=== PATIENT | female | born 1940 | race Caucasian/White ===

== ENCOUNTER 2016-11-30 15:29 | Observation (INO) | payer OTHER ==
[~2016-11-30] VITALS: Ht 162.6 cm; Wt 72.6 kg
[~2016-11-30 15:29] MED LIST: ALBUTEROL0.09 MG/A1 INH; CEFTIN500 MG PO; CENTRUM SILVER1 TAB PO; COLACE100 MG PO; DOXAZOSIN MESYLA1 MG PO; PEPCID AC10 M2 PO; PRESERVISION A1 EAC1 PO; PROBIOTIC FORMU1 CA1 PO; PROMETHAZINE25 M1 PO
--- NOTE | 2016-11-30 15:42 | NUR ---
76 YEAR OLD FEMALE COMPLAINS OF MID CHEST PAIN THAT STARTED THIS AM, PAIN IS CONSTANT, BUT GETS SHARPER AT TIMES AND THAT SHE CAN'T STOP BELCHING, STATES THAT PAIN ALSO WRAPS INTO HER BACK. STATES THAT SHE FEELS LIKE THERE IS A PRESSURE IN HER MID EPIGASTRIC AREA INTO HER BACK. ALSO STATES THAT HE RFEET FEEL COURT AND THAT SHE HAS A HEADACHE. BP ELEVATED AT TRIAGE
[2016-11-30] MEDS ORDERED: VALSARTAN320 M1 PO (15:57)
[2016-11-30] MEDS ORDERED: MULTI-DAY VITA1 EACH PO (15:59)
[2016-11-30] MEDS ORDERED: MAGNESIUM400 M1 PO (15:59)
--- NOTE | 2016-11-30 16:29 | ED GENERAL ADULT ---
See Addendum History of Present Illness General Chief Complaint: Chest Pain Stated Complaint: C/P ON AND OFF SINCE YESTERDAY/ABD PAIN Source: patient Exam Limitations: no limitations Vital Signs & Intake/Output Vital Signs & Intake/Output Vital Signs Date Time Temp Pulse Resp B/P B/P Pulse O2 O2 Flow FiO2 Mean Ox Delivery Rate 11/30 1941 54 18 170/89 98 Room Air 11/30 1758 97.8 70 18 163/80 98 Room Air 11/30 1656 64 164/87 11/30 1539 99.3 86 20 193/104 98 Room Air Allergies Coded Allergies: aspirin (BRUISE, HEAD FEELS FUNNY 10/05/15) azithromycin (ABD CRAMPS, HEADACHE 10/05/15) ciprofloxacin (From CIPRO) (HYPOTENSION 10/05/15) hydralazine (SOB, TACHYCARDIA 10/05/15) latex (BLOODIED AREAS OF CONTACT 10/05/15) nitrofurantoin (RASH 10/05/15) phenazopyridine (RASH 10/05/15) rabeprazole (MILD MYALGIA 10/05/15) amlodipine (Severe, LEG CRAMPING 10/05/15) ondansetron (Intermediate, NAUSEA 10/05/15) amoxicillin (From AUGMENTIN) (DIZZY 10/05/15) clavulanic acid (From AUGMENTIN) (DIZZY 10/05/15) lisinopril (SEVERE HYPOTENSION 10/05/15) metronidazole (HYPOTENSION 10/05/15) rosuvastatin (MYALGIA 10/05/15) Uncoded Allergies: GASOLINE (WHEEZING 06/14/15) Reconcile Medications Famotidine (Pepcid AC) 10 MG TABLET 1 TAB PO BID GI (Reported) Magnesium Oxide (Magnesium) (Unknown Strength) CAPSULE (Unknown Dose) PO BID SUPPLEMENT (Reported) Multivitamin (Multi-Day Vitamins) 1 EACH TABLET 1 TAB PO DAILY SUPPLEMENT ( Reported) Valsartan 320 MG TABLET 1 TAB PO DAILY BP (Reported) Vit C/E/Zn/Coppr/Lutein/Zeaxan (Preservision Areds 2 Softgel) 250-200-40 CAPSULE 1 CAP PO BID SUPPLEMENT (Reported) Triage Note: 76 YEAR OLD FEMALE COMPLAINS OF MID CHEST PAIN THAT STARTED THIS AM, PAIN IS CONSTANT, BUT GETS SHARPER AT TIMES AND THAT SHE CAN'T STOP BELCHING, STATES THAT PAIN ALSO WRAPS INTO HER BACK. STATES THAT SHE FEELS LIKE THERE IS A PRESSURE IN HER MID EPIGASTRIC AREA INTO HER BACK Triage Nurses Notes Reviewed? yes Onset: Abrupt Duration: hour(s): Timing: recent history HPI: 11/30/16 5:11 PM 76-year-old female presents to the emergency department for epigastric abdominal pain and tightness. She also has an elevated blood pressure. She says that she 's had intermittent episodes of elevated blood pressure. This morning her blood pressure was very high. She had a mild headache. This is gone. She's also had some intermittent chest discomfort. She admits to nausea but no vomiting. The onset of the symptoms was abrupt, the duration was just today, the severity significant; as her symptoms required her to come to the emergency department for care. Past History Travel History Traveled to [facility] [place] past 21 day No Medical History Any Pertinent Medical History? see below for history EENT: SEASONAL ALLERGIES Cardiovascular: hypertension Respiratory: asthma, COPD Gastrointestinal: diverticulitis, GERD Renal: kidney stones requiring lithotripsy/stenting recurrent uti Musculoskeletal: osteoarthritis Surgical History Surgical History: appendectomy, hemicolectomy hernia repair x 8 Psychosocial History Who do you live with Patient/Self What is your primary language Georgian Tobacco Use: Never used Family History Hx Contributory? No Review of Systems Review of Systems Constitutional: Denies: fever. EENTM: Denies: visual changes. Respiratory: Reports: short of breath (ALWAYS). Cardiovascular: Denies: chest pain. GI: Reports: abdominal pain. Genitourinary: Reports: no symptoms. Musculoskeletal: Reports: no symptoms. Skin: Reports: no symptoms. Neurological/Psychological: Reports: headache. Hematologic/Endocrine: Denies: bruising, bleeding. Immunologic/Allergic: Reports: no symptoms. Physical Exam Physical Exam General Appearance: alert, awake, anxious, moderate distress Head: atraumatic, normal appearance Eyes: Bilateral: normal appearance, PERRL, EOMI. Ears, Nose, Throat: normal pharynx, normal ENT inspection Neck: normal inspection, supple Respiratory: normal breath sounds, chest non-tender, no respiratory distress Cardiovascular: regular rate/rhythm Peripheral Pulses: 4+ radial (R), 4+ radial (L) Gastrointestinal: soft, tenderness Back: decreased range of motion Extremities: pedal edema Neurologic/Psych: no motor/sensory deficits, awake, alert, oriented x 3 Skin: intact, normal color, warm/dry Core Measures ACS in differential dx? Yes ASA ordered for poss ACS? No-d/t known allergy CVA/TIA Diagnosis: No Severe Sepsis Present: No Septic Shock Present: No Progress Differential Diagnoses I considered the following diagnoses in my evaluation of the patient: Acute coronary syndrome, hypertensive urgency, cholecystitis, diverticulitis, bowel obstruction Plan of Care: Orders Procedure Date/time Status Heart Healthy Diet 12/01 B Active Patient Data 11/[address] in observation 11/30 2053 Active Vital Signs 11/30 2053 Active Code Status 11/30 2053 Active Add-on Test (ER Only) 11/30 181 Active EKG 11/30 181 Active TROPONIN LEVEL 11/30 165 Complete Saline Lock 11/30 163 Active D-DIMER 11/30 163 Complete COMPREHENSIVE METABOLIC PANEL 11/30 163 Complete CBC WITHOUT DIFFERENTIAL 11/30 163 Complete B-TYPE NATRIURETIC PEP (BNP) 11/30 163 Complete Intake & Output 11/30 1551 Active EKG 11/30 1533 Active Laboratory Tests 11/30/16 1650: Anion Gap 9, Estimated GFR > 60, BUN/Creatinine Ratio 22.9, Glucose 86, Calcium 9.9, Total Bilirubin 0.8, AST 25, ALT 35, Alkaline Phosphatase 86, Troponin I < 0.01, Bty-T-Vcdkrtftppc Pept 114, Total Protein 7.0, Albumin 4.4, Globulin 2.6, Albumin/Globulin Ratio 1.7, D-Dimer High Sensitivty < 200, CBC w Diff NO MAN DIFF REQ, RBC 4.50, MCV 90.6, MCH 30.0, RDW 14.1, MPV 8.8, Gran % 79.0 H, Lymphocytes % 9.4 L, Monocytes % 8.6, Eosinophils % 2.8, Basophils % 0.2, Absolute Granulocytes 5.3, Absolute Lymphocytes 0.6 L, Absolute Monocytes 0.6, Absolute Eosinophils 0.2, Absolute Basophils 0, PUBS MCHC 33.2 Initial ED EKG: NSR Prior EKG: unchanged Departure Departure Disposition: HOME OR SELF CARE Condition: Stable Clinical Impression Primary Impression: Abdominal pain Secondary Impressions: Chest pain, Hypertension Referrals: LUCIO STERLING,VANESA Pelletier (PCP/Family) Departure Forms: Customer Survey General Discharge Information Comments Patient was treated with IV Lopressor The patient had an episode of bradycardia although her blood pressure did come down with IV antihypertensive medication. Her pain improved. She was placed in inpatient observation for serial troponins, repeat cardiogram, consider cardiology consult, consider CT scan of the abdomen and pelvis, consider CT scan of the head should her headache persist. Observation Note Spoke With: MARLENA STERLING,GEOVANNA Physician Advisor Notified: RYLEE STERLING,LIZETTE Xavier Place Patient In: Non-ED OBS Care Area Rationale for Observation: My rational for observation is as follows [serial troponins, serial EKG, consider cardiology consultation, telemetry monitoring, consider CT scan of the abdomen and pelvis if continued abdominal pain, consider CT of the head if headache returns.]. Critical Care Note Critical Care Note Critical Care Time: non-applicable
[2016-11-30 16:59] LABS: ABSOLUTE BASOPHIL COUNT 0 /CUMM (0.0-0.2); ABSOLUTE EOSINOPHIL COUNT 0.2 /CUMM (0.0-0.7); ABSOLUTE GRANULOCYTE CT 5.3 /CUMM (1.4-6.5); ABSOLUTE LYMPH COUNT 0.6 /CUMM (1.2-3.4); ABSOLUTE MONOCYTE COUNT 0.6 /CUMM (0.10-0.60); BASOPHIL % 0.2 % (0.0-2.0); EOSINOPHIL % 2.8 % (0-5); HEMATOCRIT 40.8 % (37-47); MEAN CORPUSCULAR HGB CONC 33.2 G/DL (33.0-37.0); MEAN CORPUSCULAR VOLUME 90.6 FL (81.0-99.0); MEAN PLATELET VOLUME 8.8 FL (7.4-10.4); PLATELET COUNT 214 /CUMM (130-400); RBC DISTRIBUTION WIDTH 14.1 % (11.5-14.5); WHITE BLOOD CELL COUNT 6.8 /CUMM (4.8-10.8)
--- NOTE | 2016-11-30 17:10 | RADIOLOGY REPORT ---
EXAMINATION: XR PORTABLE CHEST CLINICAL INFORMATION: Shortness of breath. COMPARISON: Multiple priors including 06/14/2015. 07/22/2012. TECHNIQUE: Portable frontal view of the chest was obtained. FINDINGS: The cardiomediastinal silhouette is stable appearing and unremarkable. There is a stable appearing 1 cm nodule in the right costophrenic angle laterally likely previously identified nodule on chest CT. This appears unchanged back to the portable chest x-ray the 2012. The lungs and pleural spaces otherwise appear clear without evidence of congestion, consolidation, or significant appearing effusion or atelectasis. There is no evidence of pneumothorax or pulmonary edema. Included osseous structures appear largely unremarkable. IMPRESSION: No evidence of an acute intrathoracic process.
--- NOTE | 2016-11-30 17:58 | NUR ---
WHILE OBTAINING VITAL SIGNS, PT REPORTS SHE HAS NOTICED THAT HER PULSE RATE WAS DOWN TO 45 BPM WHILE RESTING AND WHEN MOVING HER NECK. DR. JACKSON INFORMED.
--- NOTE | 2016-11-30 20:09 | ULTRASOUND REPORT ---
EXAMINATION: US ABDOMEN LIMITED CLINICAL INFORMATION: Right upper quadrant abdominal pain. COMPARISON: Renal ultrasound 09/04/2015. TECHNIQUE: Real-time imaging of the right upper quadrant abdominal viscera. FINDINGS: PANCREAS: Normal. LIVER: Unremarkable. The liver demonstrates normal size, contour and echogenicity. No focal lesion or intrahepatic biliary duct dilatation. GALLBLADDER: Unremarkable. The gallbladder is physiologically distended without evidence of stones, sludge, polyps, wall thickening or pericholecystic fluid. COMMON BILE DUCT: Normal in caliber measuring 0.5 cm in diameter. RIGHT KIDNEY: The right kidney is normal in size, contour and echogenicity and measures approximately 13 cm in length. 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 Identified is a shadowing stone within the midpole of the right kidney measuring 1.6 cm in maximum diameter. There is no appreciable hydronephrosis of the right kidney. FREE FLUID: None. IMPRESSION: 1. No cholelithiasis or secondary signs of acute cholecystitis. 2. Interval development of a 1.6 cm shadowing stone within the midpole of the right kidney. No appreciable hydronephrosis of the right kidney. 3. 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
--- NOTE | 2016-11-30 20:46 | NUR ---
RESTING QUIETLY. REMAINS SLIGHTLY HYPERTENSIVE WITH RIGHT SIDED HEADACHE. DENIES N/V, DIZZINESS OR BLURRED VISION. PATIENT IS ABLE TO AMBULATE W/O ASSIST.
--- NOTE | 2016-11-30 22:07 | NUR ---
RESTING QUIETLY. AWAITING BED ASSIGNMENT.
--- NOTE | 2016-11-30 23:08 | History & Physical ---
LIZ WILLETT 11/30/16 8668: General Information and HPI MD Statement: I have seen and personally examined BRITNI RIOS and documented this H&P. The patient is a 76 year old F who presented with a patient stated chief complaint of epigastric/chest pain. Source of Information: patient Exam Limitations: no limitations History of Present Illness: Mrs. Rios is a 76-year-old woman with past medical history of hypertension, asthma, osteoarthritis, diverticulitis status post partial colon resection, nephrolithiasis presents to the [facility] ED chief complaint of chest pain and elevated blood pressure. Patient started experiencing this current episode of midsternal bandlike chest pain this afternoon, describing this as sharp, nonradiating pain. No alleviating or aggravating factors. Nonexertional. No associated lightheadedness or dizziness, but does admit to experiencing exertional dyspnea for a few days. This episode of chest pain has been ongoing for last several days, and usually starts 15-20 after minutes consumption of meal. For previous episodes, patient took Pepcid, which did seem to relieve the pain. She denies any acid reflux, but does state undergoing endoscopy 2-3 years ago for acid reflux disease. She denies any history of diffuse esophageal spasms. Further, patient states that she has noticed high blood pressure readings at home, ranging 130 to 160 systolic and 70-100 diastolic. She attributes this change to her recent brief feeling of valsartan 17 days ago, stating that her new pills are not as effective. Today, her blood pressure was more than 200s systolic and 125 diastolic, and that prompted her to come to the ED. She states compliance with her medications. She does admit to recent dietary indiscretions , consuming more processed and chopped meats from outside, which is different from her usual. She admits to eating more of steak, beef etc. and also admits to symptom onset post big meals. No difficulty swallowing reported. She also admits to headaches for 2-3 days, parietal and occipital, with no associated vision changes, weakness or numbness tingling in extremities. She denies any palpitations, or any prior history of abnormal heart rhythm or slow heart rate. Admits to getting a pharmacological stress test a few years ago. Other systems reviewed and negative, exceptions above. Allergies/Medications Allergies: Coded Allergies: aspirin (BRUISE, HEAD FEELS FUNNY 10/05/15) azithromycin (ABD CRAMPS, HEADACHE 10/05/15) ciprofloxacin (From CIPRO) (HYPOTENSION 10/05/15) hydralazine (SOB, TACHYCARDIA 10/05/15) latex (BLOODIED AREAS OF CONTACT 10/05/15) nitrofurantoin (RASH 10/05/15) phenazopyridine (RASH 10/05/15) rabeprazole (MILD MYALGIA 10/05/15) amlodipine (Severe, LEG CRAMPING 10/05/15) ondansetron (Intermediate, NAUSEA 10/05/15) amoxicillin (From AUGMENTIN) (DIZZY 10/05/15) clavulanic acid (From AUGMENTIN) (DIZZY 10/05/15) lisinopril (SEVERE HYPOTENSION 10/05/15) metronidazole (HYPOTENSION 10/05/15) rosuvastatin (MYALGIA 10/05/15) Uncoded Allergies: GASOLINE (WHEEZING 06/14/15) Home Med list Famotidine (Pepcid AC) 10 MG TABLET 1 TAB PO BID GI (Reported) Magnesium Oxide (Magnesium) (Unknown Strength) CAPSULE (Unknown Dose) PO BID SUPPLEMENT (Reported) Multivitamin (Multi-Day Vitamins) 1 EACH TABLET 1 TAB PO DAILY SUPPLEMENT ( Reported) Valsartan 320 MG TABLET 1 TAB PO DAILY BP (Reported) Vit C/E/Zn/Coppr/Lutein/Zeaxan (Preservision Areds 2 Softgel) 250-200-40 CAPSULE 1 CAP PO BID SUPPLEMENT (Reported) Compliance With Home Meds: GOOD Past History Travel History Traveled to [place] past 21 day No Medical History EENT: SEASONAL ALLERGIES Cardiovascular: hypertension Respiratory: asthma, COPD Gastrointestinal: diverticulitis, GERD Renal: kidney stones requiring lithotripsy/stenting recurrent uti Musculoskeletal: osteoarthritis Surgical History Surgical History: appendectomy, hemicolectomy hernia repair x 8 Past Family/Social History Family History Relations & Conditions if any Relation not specified for: No pertinent family history Psychosocial History Living Will? yes Functional Ability ADLs Independent: dressing, eating, toileting, bathing. Ambulation: independent IADLs Independent: shopping, housework, finances, food prep, telephone, medication admin. Review of Systems Review of Systems Constitutional: Reports: see HPI. Exam & Diagnostic Data Last 24 Hrs of Vital Signs/I&O Vital Signs Date Time Temp Pulse Resp B/P B/P Pulse O2 O2 Flow FiO2 Mean Ox Delivery Rate 12/01 0019 70 20 142/88 97 Room Air 11/30 2302 188/100 11/30 2246 98.2 62 18 186/100 97 Room Air 11/30 1941 54 18 170/89 98 Room Air 11/30 1758 97.8 70 18 163/80 98 Room Air 11/30 1656 64 164/87 11/30 1539 99.3 86 20 193/104 98 Room Air Intake & Output 12/01 0800 12/01 0000 11/30 1600 Intake Total Output Total Balance Patient 160 lb Weight Physical Exam General Appearance Alert, Oriented X3, Cooperative HEENT Atraumatic, PERRLA, EOMI, Mucous Membr. moist/pink Neck Supple, No JVD Cardiovascular Regular Rate, Normal S1, Normal S2 Lungs Clear to Auscultation, Normal Air Movement Abdomen Normal Bowel Sounds, Soft, No Tenderness Neurological Normal Gait, Normal Speech, Strength at 5/5 X4 Ext Extremities No Clubbing, No Cyanosis, No Edema Last 24 Hrs of Labs/Sravan: Laboratory Tests 12/01/16 0010: Troponin I Pending 11/30/160: Anion Gap 9, Estimated GFR > 60, BUN/Creatinine Ratio 22.9, Glucose 86, Calcium 9.9, Total Bilirubin 0.8, AST 25, ALT 35, Alkaline Phosphatase 86, Troponin I < 0.01, Qzs-L-Jedhlghixfa Pept 114, Total Protein 7.0, Albumin 4.4, Globulin 2.6, Albumin/Globulin Ratio 1.7, D-Dimer High Sensitivty < 200, CBC w Diff NO MAN DIFF REQ, RBC 4.50, MCV 90.6, MCH 30.0, RDW 14.1, MPV 8.8, Gran % 79.0 H, Lymphocytes % 9.4 L, Monocytes % 8.6, Eosinophils % 2.8, Basophils % 0.2, Absolute Granulocytes 5.3, Absolute Lymphocytes 0.6 L, Absolute Monocytes 0.6, Absolute Eosinophils 0.2, Absolute Basophils 0, PUBS MCHC 33.2 Diagnostic Data EKG Results NSR, no changes since previous tracing Sinus Crow, no ST-T changes CXR Results IMPRESSION: No evidence of an acute intrathoracic process. Other Results IMPRESSION: 1. No cholelithiasis or secondary signs of acute cholecystitis. 2. Interval development of a 1.6 cm shadowing stone within the midpole of the right kidney. No appreciable hydronephrosis of the right kidney. 3. 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 Assessment/Plan Assessment: 76 year old woman with known history of acid reflux, no known cardiac history ( except for stress test few years ago with Dr. Brantley, results unknown) here with nonexertional recurring midsternal/epigastric pain, low LILIA score ~ 2, requiring telemetry observation to rule out a coronary event and treatment of hypertensive urgency. 1. Atypical chest pain : Rule out ACS, serial tropnins and EKG. Continue cardiac monitoring. Obtain echocardiogram (none done in last few years). Notify Dr. Jonas Tyson in am. Continue acid reduction with famotidine, increase dose to 20 mg twice a day. Allergy to PPI noted. 2. Hypertensive urgency: Likely related to recent dietary indiscretions, or bad batch of valsartan, as stated by the patient. Mean arterial pressure on admission 133.7 mmHg. Goal mean arterial pressure for next 24 hours 100 mmHg ( 25 % reeduction in MAP on presentation), goal SBP 140/DBP 80. May use Labetalol given patient's isolated episode of Bradycardia in ED. Patient allergies to several anti-hypertensives noted. Will prefer Clonidine PO 0.2 mg next, if BP not contreolled with Labetelol. Resume home dose of Losartan in am. Address need for additional BP meds to patient's regimen, contingent on clinical course. 3. Bradycardia: Likely result of Metopolol used in ED. Check TSH. Normal K, check Magnesium. Avoid BB or CCB. Atropine at bedside. Continue tele monitoring. *Outpatient GI workup for acid reflux/regurtitation or less likely esophageal moitlity disorder like ZULAY, pending results of above. Full Code Lovenox for DVT prophylaxis Heart Healthy diet * BEP in morning to assess any change in kidney function (hypertensive urgency). As Ranked By This Provider Problem List: 1. Atypical chest pain Core Measures/Miscellaneous Acute Coronary Syndrome ACS Diagnosis: No Cerebrovascular Accident CVA/TIA Diagnosis: No Congestive Heart Failure CHF Diagnosis: No VTE (View Protocol) VTE Risk Factors: Acute medical illness, Age > 40, Immobility, paresis [facility] d/t: No contraindications No VTE Pharm Prophylaxis d/t: No contraindications VTE Diagnosis: No VTE Type: NONE VTE Confirmed by (Test): NONE Sepsis (View Protocol) Severe Sepsis Present: No Septic Shock Septic Shock Present: No Miscellaneous Documentation Attending Case Discussed With: [facility] Primary Care Physician: VANESA VALDES MD Patient sees these Specialists Dr. Brantley Level of Patient Care: Telemetry GEE MENDIOLA [facility] 11/30/16 2308: Attending MD Review Statement Attending Statement Attending MD Statement: examined this patient, discuss w/resident/PA/HOME CARE COMPANION, agreed w/resident/PA/HOME CARE COMPANION Attending Assessment/Plan: 76 yo F with h/o HTN, asthma, nephrolithiasis s/p stent, OA, macular degeneration, diverticulitis status post partial colon resection, who is here for evaluation of chest pain and uncontrolled BP (200/130). Over the past 3 days, patient reports not feeling well, started off with occipital headache, feeling forgetful, upper abdomen discomfort that was followed by substernal sharp chest pain and upper back pain, associated with exertional dyspnea, lasting about 15 minutes especially after eating cereal this AM. She reports eating chopped beef couple of times last week, feeling nauseous, belching, took pepcid with some relief, but discomfort remains. No dysphagia or odynophagia. Last EGD showed ?gastritis, been on pepcid since. She also noted that her BP has been creeping up over the past few days. She has been on Valsartan for many years, but seems like the dose was increased 2 weeks ago. She reports allergies to many other antihypertensives including HCTZ, hydralazine, lisinopril, cardura and amlodipine. She has seen Dr. Brantley 2 years ago and stress test was negative. Vitals stable except for BP 193/104 --> 186/100 --> 156/72. Please note she did become bradycardic to 45 after receiving metoprolol 5 mg IV for BP control. Her BP has since gotten better and HR has improved. Examination is unremarkable. Labs unremarkable, trop neg. EKG: SR, no acute changes. CXR: neg. Abd USG: no cholelithiasis, 1.6 cm stone right kidney, no hydronephrosis, unchanged renal angiomyolipoma. 1. Chest pain, rule out ACS. 23 Obs on Tele, serial EKG and troponin, echo, Cardio consult. Symptoms seems most likely GI origin, continue pepcid, patient to follow up with GI as outpatient. 2. Hypertensive urgency. I think this is more anxiety related as patient is worried with the Valsartan that she has been taking for years, this could have done it. For now, we will resume her home dose of Valsartan 360 mg daily. Overnight if BP remains high, consider adding labetalol 100 BID or clonidine, as patient is allergic to many anti-hypertensives. Bradycardia after use of metoprolol. Avoid BB, atropine at bedside. DVT ppx Lovenox. Full code.
--- NOTE | 2016-12-01 00:05 | NUR ---
ASSUMED PRIMARY CARE, PT DENIES CO AWAITS BED UPSTAIRS AMBULATORY TO BR WITH NO CHANGE IN SYMPTOMS. LUNGS CLEAR MONITOR SINUS.
--- NOTE | 2016-12-01 00:20 | NUR ---
AWAKENED FOR LABS AND VS...... PT VERY ANXIOUS.
--- NOTE | 2016-12-01 04:12 | NUR ---
PATIENT AMBULATORY TO BATHROOM W/ STABLE GAIT NOTED, RETURNS TO HOSPITAL BED. HR:76 (IRREGULAR ON MONITOR) WHEN AWAKE. PATIENT RETURNS TO SLEEP, HR:50 (IRREGULAR) NOTED ON MONITOR.
--- NOTE | 2016-12-01 05:21 | NUR ---
AWOKE PATIENT, PATIENT SLEEPING INTERMITTENTLY. PATIENT DENIES PAIN AT THIS TIME, STATES "I WAS HAVING CP BEFORE AND WAS A LITTLE NAUSEOUS," DENIES ANY CP/ NAUSEA AT THIS TIME. VSS. HR:52 ON MONITOR, IRREGULAR W/ PRESENCE OF P-WAVES. PATIENT ALERT AND ORIENTED X3.
--- NOTE | 2016-12-01 05:28 | NUR ---
REPEAT LABS OBTAINED AND SENT TO LAB ([facility], [facility]).
--- NOTE | 2016-12-01 06:16 | NUR ---
IPOC CONTINUED AND UTD.
--- NOTE | 2016-12-01 08:18 | NUR ---
PT REQUESTS CEREALL AND TOAST UNABLE OT EAT BREAKD\FAST PROVIDED. KITCHEN CONTACTED BY .
--- NOTE | 2016-12-01 08:29 | NUR ---
AWAITS PLAN PT HAS 3 NEGATIVE TROPS NO PENDING TESTING ORDERED AWAITS REEVAL BY INPT HOUSESTAFF.
--- NOTE | 2016-12-01 09:59 | NUR ---
DR. BROWNING AND TEAM IN WITH PT.
--- NOTE | 2016-12-01 10:51 | Cons- Cardiology ---
General Information and HPI Consulting Request Date of Consult: 12/01/16 Requested By: GUSTAVO BROWNING M.D Reason for Consult: Hypertension chest pain Source of Information: patient, old records Exam Limitations: no limitations History of Present Illness: History of Present Illness: Mrs. Matos is a 76-year-old woman with past medical history of hypertension, asthma, osteoarthritis, diverticulitis status post partial colon resection, nephrolithiasis presents to the [facility] ED chief complaint of chest pain and elevated blood pressure. Patient started experiencing this current episode of midsternal bandlike chest pain this afternoon, describing this as sharp, nonradiating pain. No alleviating or aggravating factors. Nonexertional. No associated lightheadedness or dizziness, but does admit to experiencing exertional dyspnea for a few days. This episode of chest pain has been ongoing for last several days, and usually starts 15-20 after minutes consumption of meal. For previous episodes, patient took Pepcid, which did seem to relieve the pain. She denies any acid reflux, but does state undergoing endoscopy 2-3 years ago for acid reflux disease. She denies any history of diffuse esophageal spasms. Further, patient states that she has noticed high blood pressure readings at home, ranging 130 to 160 systolic and 70-100 diastolic. She attributes this change to her recent brief feeling of valsartan 17 days ago, stating that her new pills are not as effective. Today, her blood pressure was more than 200s systolic and 125 diastolic, and that prompted her to come to the ED. She states compliance with her medications. She does admit to recent dietary indiscretions , consuming more processed and chopped meats from outside, which is different from her usual. She admits to eating more of steak, beef etc. and also admits to symptom onset post big meals. No difficulty swallowing reported. She also admits to headaches for 2-3 days, parietal and occipital, with no associated vision changes, weakness or numbness tingling in extremities. She denies any palpitations, or any prior history of abnormal heart rhythm or slow heart rate. Admits to getting a pharmacological stress test a few years ago. Other systems reviewed and negative, exceptions above. The above-mentioned data was obtained by the admitting house staff. Patient confirms that she has had some chest discomfort for the past 30-4 weeks after she eats. She is quite active at home. Climbs up and down stairs carrying loads of laundry and denies any chest pains or unusual shortness of breath. There is no fainting spells or palpitations. She has not seen us in the office for the past one half years. Apparently we had done a 24 blood pressure monitor and nuclear stress test and this these were both reportedly normal. Patient has a habit of checking her blood pressure and pulse rate and there was concern that her pressure was elevated in the last few weeks and also that she has "skip in the heart" Allergies/Medications Allergies: Coded Allergies: aspirin (BRUISE, HEAD FEELS FUNNY 10/05/15) azithromycin (ABD CRAMPS, HEADACHE 10/05/15) ciprofloxacin (From CIPRO) (HYPOTENSION 10/05/15) hydralazine (SOB, TACHYCARDIA 10/05/15) latex (BLOODIED AREAS OF CONTACT 10/05/15) nitrofurantoin (RASH 10/05/15) phenazopyridine (RASH 10/05/15) rabeprazole (MILD MYALGIA 10/05/15) amlodipine (Severe, LEG CRAMPING 10/05/15) ondansetron (Intermediate, NAUSEA 10/05/15) amoxicillin (From AUGMENTIN) (DIZZY 10/05/15) clavulanic acid (From AUGMENTIN) (DIZZY 10/05/15) lisinopril (SEVERE HYPOTENSION 10/05/15) metronidazole (HYPOTENSION 10/05/15) rosuvastatin (MYALGIA 10/05/15) Uncoded Allergies: GASOLINE (WHEEZING 06/14/15) Home Med List: Famotidine (Pepcid AC) 10 MG TABLET 1 TAB PO BID GI (Reported) Magnesium Oxide (Magnesium) (Unknown Strength) CAPSULE (Unknown Dose) PO BID SUPPLEMENT (Reported) Multivitamin (Multi-Day Vitamins) 1 EACH TABLET 1 TAB PO DAILY SUPPLEMENT ( Reported) Valsartan 320 MG TABLET 1 TAB PO DAILY BP (Reported) Vit C/E/Zn/Coppr/Lutein/Zeaxan (Preservision Areds 2 Softgel) 250-200-40 CAPSULE 1 CAP PO BID SUPPLEMENT (Reported) Review of Systems Review of Systems Constitutional: Denies: no symptoms. EENTM: Denies: no symptoms. Cardiovascular: Reports: see HPI. Respiratory: Denies: no symptoms. GI: Reports: see HPI. Genitourinary: Denies: no symptoms. Musculoskeletal: Denies: no symptoms. Skin: Denies: no symptoms. Neurological/Psychological: Denies: no symptoms. Hematologic/Endocrine: Denies: no symptoms. Immunologic/Allergic: Denies: no symptoms. 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 yes Functional Ability ADLs Independent: dressing, eating, toileting, bathing. Ambulation: independent IADLs Independent: shopping, housework, finances, food prep, telephone, medication admin. Exam & Diagnostic Data Vital Signs and I&O Vital Signs Date Time Temp Pulse Resp B/P B/P Pulse O2 O2 Flow FiO2 Mean Ox Delivery Rate 12/01 0820 97.8 60 18 153/74 98 Room Air / 0520 97.1 52 18 140/64 97 Room Air / 0359 97.8 76 18 156/72 98 /08 0043 98.2 70 20 142/88 06/08 0019 70 20 142/88 97 Room Air / 2302 188/100 06/ 2246 98.2 62 18 186/100 97 Room Air / 1941 54 18 170/89 98 Room Air /07 1758 97.8 70 18 163/80 98 Room Air / 1656 64 164/87 / 1539 99.3 86 20 193/104 98 Room Air Intake & Output 12/01 1600 /08 0800 /08 0000 / 1600 11/30 0800 / 0000 Intake Total Output Total Balance Patient 160 lb 160 lb Weight Physical Exam: Gen. exam patient appears somewhat anxious but comfortable Head normocephalic atraumatic Eyes sclera anicteric conjunctiva showed no pallor extraocular muscles were normal Neck no jugular venous distention no thyroid masses no palpable nodes Chest lungs were clear bilaterally Heart regular rhythm with occasional PACs Abdomen soft no organomegaly bowel sounds normal extremities and extremities no clubbing cyanosis or pedal edema Neurological no gross motor or sensory deficits Labs/Sravan Results: Laboratory Tests 12/01 12/01 11/30 0526 0010 1650 Chemistry Sodium (137 - 145 mmol/L) 140 140 Potassium (3.5 - 5.1 mmol/L) 3.8 3.9 Chloride (98 - 107 mmol/L) 104 103 Carbon Dioxide (22 - 30 mmol/L) 27 28 Anion Gap (5 - 16) 8 9 BUN (7 - 17 mg/dL) 17 16 Creatinine (0.5 - 1.0 mg/dL) 0.8 0.7 Estimated GFR (>60 ml/min) > 60 > 60 BUN/Creatinine Ratio (7 - 25 %) 21.3 22.9 Glucose (65 - 99 mg/dL) 86 Calcium (8.4 - 10.2 mg/dL) 9.9 Magnesium (1.6 - 2.3 mg/dL) 2.0 Total Bilirubin (0.2 - 1.3 mg/dL) 0.8 AST (14 - 36 U/L) 25 ALT (9 - 52 U/L) 35 Alkaline Phosphatase (<127 U/L) 86 Troponin I (< 0.11 ng/ml) < 0.01 < 0.01 < 0.01 [id number] Pept (<125 pg/mL) 114 Total Protein (6.3 - 8.2 g/dL) 7.0 Albumin (3.5 - 5.0 g/dL) 4.4 Globulin (1.9 - 4.2 gm/dL) 2.6 Albumin/Globulin Ratio (1.1 - 2.2 %) 1.7 TSH (0.270 - 4.200 uIU/mL) 0.904 Coagulation D-Dimer High Sensitivty (0 - 243 ng/ml) < 200 Hematology CBC w Diff NO MAN DIFF REQ WBC (4.8 - 10.8 /CUMM) 6.8 RBC (4.20 - 5.40 /CUMM) 4.50 Hgb (12.0 - 16.0 G/DL) 13.5 Hct (37 - 47 %) 40.8 MCV (81.0 - 99.0 FL) 90.6 MCH (27.0 - 31.0 PG) 30.0 RDW (11.5 - 14.5 %) 14.1 Plt Count (130 - 400 /CUMM) 214 MPV (7.4 - 10.4 FL) 8.8 Gran % (42.2 - 75.2 %) 79.0 H Lymphocytes % (20.5 - 51.1 %) 9.4 L Monocytes % (1.7 - 9.3 %) 8.6 Eosinophils % (0 - 5 %) 2.8 Basophils % (0.0 - 2.0 %) 0.2 Absolute Granulocytes (1.4 - 6.5 /CUMM) 5.3 Absolute Lymphocytes (1.2 - 3.4 /CUMM) 0.6 L Absolute Monocytes (0.10 - 0.60 /CUMM) 0.6 Absolute Eosinophils (0.0 - 0.7 /CUMM) 0.2 Absolute Basophils (0.0 - 0.2 /CUMM) 0 PUBS MCHC (33.0 - 37.0 G/DL) 33.2 Diagnostic Data EKG Results Sinus rhythm with premature atrial contractions, nonspecific T-wave changes. No acute ST-T changes. No significant change from prior study and EKG done 2016 which in turn showed no significant changes compared to prior study done 2014. CXR Results No acute process noted Other Results Abdominal ultrasound negative for gallstones Assessment/Plan Assessment/Plan In summary this 76-year-old female has been admitted with the following problems #1 chest pain, epigastric pain mostly after meals associated with burping probably suggest GI origin. The symptoms do not occur on exertion. She has had a problem with gastroesophageal reflux in the past. Serial troponins are negative and EKG has shown no acute ischemic changes. It would be fairly treat her with empirical PPIs, and at a later stage as an outpatient perform a nuclear stress test. #2 hypertension. This patient is on medications for hypertension. She however is very anxious about side effects of numerous medications perceived or real in the past. She has no concerns about the side effects of potential medications and therefore is on a willing to accept any new class of antihypertensive medication at the present time. We will therefore change her valsartan 320 mg 2 Benicar 40 mg a day has the latter might be a more potent medication. Have already discussed with her that she would need a 24-hour blood pressure monitor recording and perhaps add amlodipine 2.5-5 mg a day. There is a high component of anxiety in this woman. She measures her blood pressure and pulse rate several times a day. While she's concerned about her hypertensive readings at times she is also more concerned about side effects of potential medications. It would be helpful if she would accept amlodipine 2.5 mg prior to discharge. If she is unwilling the only change I would make his stop her valsartan and given a prescription for Benicar 40 mg a day until she seen in the office. Thank you for me the opportunity of participating in her care Consult Acknowledgment - Thank you for your consult request.
--- NOTE | 2016-12-01 10:59 | NUR ---
BEDSIDE ECHO WITH PT.
--- NOTE | 2016-12-01 11:14 | PN- Housestaff ---
ERICA STERLING,CARLY 12/01/16 0551: Subjective Follow-up For: Hypertensive urgency Subjective: Patient seen and examined. She is seen sitting upright in bed enjoying her meal. She appears to be anxious, but in no acute distress. She reports having mild mid chest discomfort but otherwise denies any headache, lightheadedness, dizziness, vision changes, new numbness or weakness, shortness of breath. She is very concerned about the sides effects of any other medications and has many questions concerning this. Otherwise she denies fever, chills, cough, palpitations, nausea, vomiting. Review of Systems Constitutional: Reports: see HPI. Objective Last 24 Hrs of Vital Signs/I&O Vital Signs Date Time Temp Pulse Resp B/P B/P Pulse O2 O2 Flow FiO2 Mean Ox Delivery Rate 12/01 1123 97.0 90 20 133/71 06/08 0820 97.8 60 18 153/74 98 Room Air 12/01 0520 97.1 52 18 140/64 97 Room Air / 0359 97.8 76 18 156/72 98 /08 0043 98.2 70 20 142/88 06/08 0019 70 20 142/88 97 Room Air /07 2302 188/100 06/ 2246 98.2 62 18 186/100 97 Room Air / 1941 54 18 170/89 98 Room Air / 1758 97.8 70 18 163/80 98 Room Air Intake & Output 12/01 1600 /08 0800 12/01 0000 Intake Total Output Total Balance Patient 72.575 kg Weight Physical Exam General Appearance: Alert, Oriented X3, Cooperative, Anxious Other Physical Findings: General- well developed, elderly woman appearing anxious but in no acute distress HEENT- NCAT, PERRL, EOMI, anicteric sclera, moist mucous membranes Chest- S1, S2 w/o m/g/r Lung- CTA bilaterally Abdomen- Soft, nontender, nondistneded, bowel sounds intact Neuro- Awake and alert, oriented to person/place/time, CN II - XII grossly intact Ext- normal pulses, no cyanosis/clubbing/edema Current Medications: Current Medications Sig/Esteban Start time Last Medication Dose Route Stop Time Status Admin Atropine Sulfate 0.5 MG DAILY NEEDED PRN 11/30 2300 DCD IV Enoxaparin Sodium 40 MG DAILY 12/01 1000 DCD 06/08 SC 1123 Famotidine 0 .STK-MED ONE 12/01 0019 DC PO Famotidine 20 MG BID 11/30 2255 DCD 12/01 PO 1123 Labetalol HCl 100 MG STAT STA 11/30 2302 DC PO 11/30 2303 Losartan Potassium 100 MG DAILY 12/01 1000 DCD 12/01 PO 1123 Magnesium Oxide 400 MG BID 12/01 1000 DCD 12/01 PO 1123 Multivitamins 1 TAB DAILY 12/01 1000 CAN PO Multivitamins 1 TAB DAILY 12/01 1000 DCD 12/01 Therapeutic PO 1123 Last 24 Hrs of Lab/Sravan Results Last 24 Hrs of Labs/Mics: Laboratory Tests 12/01/16 0526: Anion Gap 8, Estimated GFR > 60, BUN/Creatinine Ratio 21.3, Troponin I < 0.01 12/01/16 0010: Troponin I < 0.01 Assessment/Plan Assessment: Patient blood pressure was elevated upon inital evaluation but has subsequently normalized. She feels her blood pressure is no longer controlled with valsartan and would like to be transition to a new medication with a lower side effect profile. business transformation consultant recommed transitioning her to Benicar and Amlodipine. Patient decided to start only the Benicar and agreed to close outpatient follow up. Problem List: -Hypertensive urgency Plan: -DC to home -Change Valsartan to Benicar 40mg PO Daily -Continue Famotidine -DVT PPx -FULL CODE -Outpatient follow up with cardiology and possible stress test Problem List: 1. HYPERTENSIVE URGENCY Pain Ratin Pain Location: Epigastrum Pain Goal: Pain 4 or less Pain Plan: See assessment Tomorrow's Labs & Rationales: None NALLELY STERLING,GUSTAVO 12/01/16 1107: Attending MD Review Statement Attending Statement Attending MD Statement: examined this patient, discuss w/resident/PA/HIDE SPLITTER, agreed w/resident/PA/HIDE SPLITTER, reviewed EMR data (avail), discussed with nursing, discussed with case mgmt, amended to note Attending Assessment/Plan: Patient seen and examined. Lying comfortably in bed and not in any acute distress. Denies any chest pain at present. Denies any epigastric pain. Patient is very anxious about her blood pressure. She takes her blood pressure several times a day. She reports she cannot blood pressure after going down the stairs to the laundry room and immediately after climbing back up the stairs following laundry. She checks it randomly at different times during the day at home. She gives distress remains with no clear indication that her numbers are consistently elevated other than the reading of 210 systolic she reports having yesterday prior to admission. On arrival emergency room her blood pressure was 193/104. Despite her concern about elevated blood pressures is adamant on not starting any new antihypertensive medications stating several either real or perceived side effects with a number antihypertensive medications. She denies any anxiety. Denies again any medications for anxiety. She has had ambulatory blood pressure measurement done by her physicians in the past Problems: 1. Epigastric pain 2. Hypertension Plan: -Cardiac enzymes are negative. EKG shows no acute ischemic changes. Symptoms are epigastric in location associated with burping and began after a bed she change recommended to the patient. Denies any symptoms at present. Cardiology consultation appreciated. She'll follow-up as an outpatient I will be considered for a stress test at that time. We'll treat empirically with proton pump inhibitor for the next few weeks. -Follow-up recommendations of the cardiology service regarding control of her blood pressure. Following this she may be discharged home with follow-up with her primary care provider next week.
[2016-12-01 11:23] VITALS: BP 133/71
[2016-12-01] MEDS ORDERED: BENICAR40 M1 PO (11:35)
--- NOTE | 2016-12-01 11:35 | NUR ---
PT ASSUMED CARE OF PT. PT EATING LUNCH.
--- NOTE | 2016-12-01 11:36 | Patient Discharge Instructions ---
Discharge Instructions General Discharge Information Special Instructions: Stop taking valsartan, start taking Benicar as directed. Continue all your other home medicaitons. Follow up with your hardwood floor layer after discharge for further optimization of your antihypertensive medications regimen. Acute Coronary Syndrome Inclusion Criteria At DC or during hospital stay patient has or had the following: ACS DIAGNOSIS No Discharge Core Measures Meds if any: Prescribed or Continued at Discharge Meds if any: NOT Prescribed or Continued at Discharge Congestive Heart Failure Inclusion Criteria At DC or during hospital stay patient has or had the following: CHF DIAGNOSIS No Discharge Core Measures Meds if any: Prescribed or Continued at Discharge Meds if any: NOT Prescribed or Continued at Discharge Cerebrovascular accident Inclusion Criteria At DC or during hospital stay patient has or had the following: CVA/TIA Diagnosis No Discharge Core Measures Meds if any: Prescribed or Continued at Discharge Meds if any: NOT Prescribed or Continued at Discharge Venous thromboembolism Inclusion Criteria VTE Diagnosis No VTE Type NONE VTE Confirmed by (Test) NONE Discharge Core Measures - Per Current guidelines, there needs to be overlap - treatment for the first 5 days of Warfarin therapy. - If discharged on Warfarin prior to 5 days of - overlap therapy, the patient will need to be - assessed for post discharge needs including - *Post discharge parental anticoagulation - *Warfarin and/or parental anticoagulation education - *Follow up date to check INR post discharge At least 5 days overlap therapy as Inpatient No Meds if any: Prescribed or Continued at Discharge Note: Overlap Therapy is Warfarin and Anticoagulant Meds if any: NOT Prescribed or Continued at Discharge
--- NOTE | 2016-12-02 08:28 | ECHOCARDIOGRAM REPORT ---
BRITNI RIOS Age: 76 : 1940 Gender: F Exam Date: 12/01/2016 10:43 Exam Location: ER Ht (in): 64 Wt (lb): 160 BSA: 1.83 BP: 133 / 71 Ordering Physician: LIZ WILLETT MD Referring Physician: LIZ WILLETT MD Technologist: Bakari Hou RDCS Room Number: 4 Indications: Chest Pain Rhythm: Sinus Technical Quality: fair FINDINGS Left Ventricle Normal size left ventricle. Left ventricular wall thickness mildly increased. Normal left ventricular ejection fraction estimated at 60-65%. Right Ventricle Normal right ventricular size and function. Right Atrium Normal right atrial size. Left Atrium Normal left atrial size. Mitral Valve Mild mitral annular calcification. Trace to mild mitral regurgitation. Aortic Valve Aortic valve is normal in structure and function. Tricuspid Valve Tricuspid valve is normal in structure and function. Trace to mild tricuspid regurgitation. Right ventricular systolic pressure estimated to be at upper limits of normal at 35 mmHg. Pulmonic Valve Pulmonic valve not well visualized, grossly normal. Pericardium No pericardial effusion. Great Vessels Normal size aortic root. CONCLUSIONS Normal left ventricular systolic function with mild concentric hypertrophy. No significant Valvular abnormalities noted. Yon Brantley M.D. (Electronically Signed) Final Date: 02 December 2016 08:28 MEASUREMENTS (Male / Female) Normal Values 2D ECHO LV Diastolic Diameter PLAX 5.1 cm 4.2 - 5.9 / 3.9 - 5.3 cm LV Systolic Diameter PLAX 2.7 cm 2.1 - 4.0 cm LV Fractional Shortening PLAX 47.1 % 25 - 46 % LV Ejection Fraction 2D Teich 78.2 % IVS Diastolic Thickness 1.3 cm LVPW Diastolic Thickness 1.2 cm LV Relative Wall Thickness 0.5 RV Internal Dim ED PLAX 3.3 cm 1.9 - 3.8 cm LVOT Diameter 1.8 cm Aortic Root Diameter 2.6 cm LA Systolic Diameter LX 3.1 cm 3.0 - 4.0 / 2.7 - 3.8 cm LA Volume 35.0 cm 18 - 58 / 22 - 52 cm Ascending Aorta Diameter 3.3 cm DOPPLER AV Peak Velocity 180.0 cm/s AV Peak Gradient 13.0 mmHg AV Mean Velocity 122.0 cm/s AV Mean Gradient 7.0 mmHg AV Velocity Time Integral 45.4 cm LVOT Peak Velocity 140.0 cm/s LVOT Peak Gradient 7.8 mmHg LVOT Mean Velocity 71.3 cm/s LVOT Mean Gradient 3.0 mmHg LVOT Velocity Time Integral 30.8 cm LVOT Stroke Volume 78.4 cm AV Area Cont Eq vti 1.7 cm AV Area Cont Eq pk 2.0 cm MV Peak Velocity 124.0 cm/s MV Peak Gradient 6.2 mmHg MV Mean Velocity 67.6 cm/s MV Mean Gradient 2.0 mmHg Mitral E Point Velocity 87.9 cm/s Mitral A Point Velocity 126.0 cm/s Mitral E to A Ratio 0.7 MV PHT Velocity 116.0 cm/s MV Deceleration Saunders 308.0 cm/s MV Pressure Half Time 113.0 ms MV Area PHT 1.9 cm MV Deceleration Time 338.0 ms TR Peak Velocity 271.0 cm/s TR Peak Gradient 29.4 mmHg Right Atrial Pressure 5.0 mmHg Pulmonary Artery Systolic Pressu 34.4 mmHg Right Ventricular Systolic Press 34.4 mmHg PV Peak Velocity 82.7 cm/s PV Peak Gradient 2.7 mmHg PV Mean Velocity 60.5 cm/s PV Mean Gradient 2.0 mmHg PV Velocity Time Integral 22.3 cm LV E' Lateral Velocity 8.6 cm/s Mitral E to LV E' Lateral Ratio 10.2 LV E' Septal Velocity 5.5 cm/s Mitral E to LV E' Septal Ratio 16.1
== END 2016-12-01 12:50 | disposition home health service (06) ==
LOC: ERH 15:29 → ERHI 20:54 → ENRESERV 12-01 00:28 → ERHI 12-01 07:11
PROVIDERS: Emergency Medicine; ADMIT Student in an Organized Health Care Education/Training Program
DX: I16.0 Hypertensive urgency (principal); I10 Essential (primary) hypertension; R10.13 Epigastric pain; R07.89 Other chest pain; J44.9 Chronic obstructive pulmonary disease, unspecified; Z87.442 Personal history of urinary calculi
CPT/HCPCS: 6090; 82436; 93005; 93010; 93306; 96372; 96374; 99291; G0378; J0461; J1650; J3490